=== PATIENT | female | born 1985 | race Hispanic/Latino ===

== ENCOUNTER 2016-12-06 12:15 | Emergency (ER) | payer BC ==
[~2016-12-06] VITALS: Ht 152.4 cm; Wt 140.0 kg
[~2016-12-06 12:15] MED LIST: BACTRIM DS1 TAB PO; TORADOL PO; ULTRAM50 M1 PO
[2016-12-06] MEDS ORDERED: MOTRIN800 MG PO (13:38)
[2016-12-06 13:59] VITALS: BP 105/57
== END 2016-12-06 13:59 | disposition home or self-care (01) | DRG 605 ==
LOC: ED 12:15
DX: S60.221A Contusion of right hand, initial encounter (principal); W22.8XXA Striking against or struck by other objects, initial encounter; Y93.89 Activity, other specified; Y92.007 Garden or yard of unspecified non-institutional (private) residence as the place of occurrence of the external cause

== ENCOUNTER 2019-06-14 | Emergency (ER) | payer BC ==
[~2019-06-14] MED LIST changes: +MOTRIN800 MG PO
[2019-06-14] MEDS ORDERED: LEVOTHYROXIN50 MCG PO (05:48)
[2019-06-14] MEDS ORDERED: METFORMIN500 M1 PO (05:48)
== END 2019-06-14 06:45 | disposition home or self-care (01) | DRG 605 ==
DX: S90.31XA Contusion of right foot, initial encounter (principal); E11.9 Type 2 diabetes mellitus without complications; F17.200 Nicotine dependence, unspecified, uncomplicated; W22.09XA Striking against other stationary object, initial encounter; Y93.89 Activity, other specified; Y92.009 Unspecified place in unspecified non-institutional (private) residence as the place of occurrence of the external cause

== ENCOUNTER 2022-07-16 09:07 | Emergency (ER) | payer SELFPAY ==
[~2022-07-16] VITALS: Ht 152.4 cm; Wt 163.5 kg
[~2022-07-16 09:07] MED LIST changes: +LEVOTHYROXIN50 MCG PO; +METFORMIN500 M1 PO
[2022-07-16 09:56] LABS: URINE BILIRUBIN - DIPSTICK NEGATIVE (NEGATIVE); URINE BLOOD DIPSTICK NEGATIVE (NEGATIVE); URINE COLOR YELLOW; URINE GLUCOSE - DIPSTICK NEGATIVE (NEGATIVE); URINE KETONE NEGATIVE (NEGATIVE); URINE LEUK ESTERASE NEGATIVE (NEGATIVE); URINE NITRITE - DIPSTICK NEGATIVE (Negative); URINE PH 5.5 (4.5-8.0); URINE PROTEIN - DIPSTICK NEGATIVE (NEG-TRACE); URINE SPECIFIC GRAVITY 1.025; URINE UROBILINOGEN - DIPSTICK 0.2 E.U./dL (0.2)
[2022-07-16 10:43] LABS: BASO% 0.2 % (0-3); EOS% 1.2 % (0-8); HEMOGLOBIN 14.5 g/dl (12.0-16.0); IMMATURE GRANULOCYTES 0.4 % (0.0-5.0); LYMPH% 21.2 % (15-41); MEAN CELL VOLUME 89.2 fL CALC (80.0-100.0); MEAN CORPUSCULAR HGB 29.4 pG CALC (26.0-32.0); MONO% 5.4 % (2-13); NEUT# 8.09 thou/uL (2.00-7.15); NEUT% 71.6 % (42-76); RED BLOOD COUNT 4.93 mill/uL (4.20-5.60); RED CELL DISTRI WIDTH 13.2 % (11.5-15.5)
[2022-07-16 10:55] LABS: ALBUMIN 4.3 g/dL (3.2-5.0); ALKALINE PHOSPHATASE 77 u/l (38-126); ANION GAP 13 (6-22 (CALC)); BILIRUBIN, TOTAL 0.3 mg/dL (0.02-1.3); BUN 16 mg/dL (7-17); BUN/CREATININE RATIO 19 (12-20 (CALC)); CARBON DIOXIDE 26 mmol/l (22-30); CHLORIDE 105 mmol/l (95-108); CREATININE 0.8 mg/dL (0.5-1.0); GFR FOR AFR.AMER. > 60 ML/MIN (>=60 (CALC)); GFR OTHER RACES > 60 ML/MIN (>=60 (CALC)); POTASSIUM 3.8 mmol/l (3.5-5.1); SGOT/AST 26 u/l (14-36); SODIUM 140 mmol/l (137-146); TOTAL PROTEIN 7.9 g/dL (6.3-8.2)
[2022-07-16 12:51] VITALS: BP 126/82
== END 2022-07-16 13:02 | disposition home or self-care (01) | DRG 392 ==
LOC: ED 09:07
PROVIDERS: Family Medicine
DX: R10.31 Right lower quadrant pain (principal); E11.9 Type 2 diabetes mellitus without complications; F17.210 Nicotine dependence, cigarettes, uncomplicated; Z79.84 Long term (current) use of oral hypoglycemic drugs